=== PATIENT | male | born 1985 | race African-American/Black ===

== ENCOUNTER 2017-11-06 09:50 | Inpatient (IN) | payer OTHER ==
[2017-11-06 10:50] LABS: Hemoglobin 10.8 g/dL (14.0-18.0); Mean Corpuscular HGB CONC 34.5 g/dL (32.0-36.0); Mean Corpuscular Hemoglobin 29.6 pg (27.0-31.0); Mean Corpuscular Volume 85.9 fl (80.0-94.0); Mean Platelet Volume 6.8 fL (7.4-10.4); Platelet Count 179 thou/uL (130-400); RBC Distribution Width 11.3 % (11.5-14.5); Red Blood Cell (RBC) Count 3.63 mill/uL (4.70-6.10); White Blood Cell (WBC) Count 7.2 thou/uL (4.8-10.8)
[2017-11-06 11:11] LABS: ALT (SGPT) 12 U/L (8-55); AST (SGOT) 14 U/L (5-34); Alkaline Phosphatase 143 U/L (40-150); Anion Gap 17 mmol/L (10-20); BUN (Urea Nitrogen) 50 mg/dL (8.9-20.6); Bilirubin, Total 0.5 mg/dL (0.2-1.2); Calc. Creatinine Clearance 0 mL/min (70-130); Calcium 9.3 mg/dL (7.8-10.44); Carbon Dioxide 26 mmol/L (22-29); Chloride 98 mmol/L (98-107); Estimated GFR-MDRD 8; Globulin 3.1 g/dL (2.4-3.5); Potassium 4.2 mmol/L (3.5-5.1); Protein, Total 7.1 g/dL (6.0-8.3); Sodium 137 mmol/L (136-145)
[2017-11-06 11:19] LABS: Glucose 37 mg/dL (70-105)
[2017-11-06 11:22] LABS: Actual Bicarbonate (HCO3a) 31.4 mEq/L (22-26); Base Excess (BEa) 5.9 mEq/L (0 (+/-) 2.5); CO2 Tension 50.8 mmHg (35.0-45.0); Carboxyhemoglobin (COHb) 1.6 gm% (0.0-3.0); Hematocrit-ABG 30.5 % (42.0-52.0); Hemoglobin (Hb) 9.9 g/dL (14.0-18.0); O2 Tension (PaO2) 76.5 mmHg (80.0-100.0); Potassium - ABG Lab 3.8 mmol/L (3.70-5.30); pH, Arterial 7.41 (7.35-7.45)
[2017-11-06 11:23] LABS: Analyzer IN Cardio ER; Calcium, Ionized 1.1 mmol/L (1.12-1.30); Puncture Site LRA
[2017-11-06 11:49] LABS: Eosinophils 4 % (0-10); Lymphocytes 22 % (21-51); MDiff Complete? YES; Monocytes 8 % (0-10); Neutrophil 66 % (42-75)
[2017-11-06 17:20] LABS: ALT (SGPT) 15 U/L (8-55); AST (SGOT) 18 U/L (5-34); Albumin 4.2 g/dL (3.5-5.0); Alkaline Phosphatase 162 U/L (40-150); Anion Gap 26 mmol/L (10-20); BUN (Urea Nitrogen) 55 mg/dL (8.9-20.6); Bilirubin, Total 0.6 mg/dL (0.2-1.2); Calc. Creatinine Clearance 0 mL/min (70-130); Calcium 9.2 mg/dL (7.8-10.44); Carbon Dioxide 20 mmol/L (22-29); Chloride 89 mmol/L (98-107); Estimated GFR-MDRD 8; Globulin 3.3 g/dL (2.4-3.5); Glucose 755 mg/dL (70-105); Potassium 6.8 mmol/L (3.5-5.1); Protein, Total 7.5 g/dL (6.0-8.3); Sodium 128 mmol/L (136-145)
[2017-11-06] MEDS ORDERED: Ondansetron ODT 8 MG TAB ONE (17:32)
[2017-11-06] MEDS ORDERED: Metoclopramide HCl 10 MG/2 ML VIAL ONE (17:52)
[2017-11-06] MEDS ORDERED: Metoclopramide 10 MG/10 ML UDCUP ONE (17:52)
[2017-11-06] MEDS ORDERED: Insulin Regular 100 units/100 ml in NS IVPB SCH (18:00)
[2017-11-06] MEDS ORDERED: D5 1/2 NS w/20 mEq KCL 1,000 ML IV PRN (18:12)
[2017-11-06] MEDS ORDERED: Sodium Chloride 0.9% 1,000 ML IV PRN ×4 (18:12)
[2017-11-06] MEDS ORDERED: Senokot 8.6 MG TAB PO PRN (18:12)
[2017-11-06] MEDS ORDERED: Guaifenesin DM 100-10/5 ML UDCUP PO PRN (18:12)
[2017-11-06] MEDS ORDERED: Ondansetron PF 4 MG/2 ML Vial IVP PRN (18:12)
[2017-11-06] MEDS ORDERED: Acetaminophen 325 MG TAB PO PRN (18:12)
[2017-11-06] MEDS ORDERED: NS 0.9% w/ 20 MEQ KCL 1,000 ML IV PRN ×2 (18:12)
[2017-11-06] MEDS ORDERED: Dextrose 5 %-0.45 % NaCl 1,000 ML IV PRN (18:12)
[2017-11-06] MEDS ORDERED: CCU Electrolyte Replacement 1 EACH IVPB ONE (18:12)
[2017-11-06] MEDS ORDERED: Potassium Chloride 40 MEQ in Premix Bag 1 BAG IVPB PRN (18:14)
[2017-11-06] MEDS ORDERED: CCU ELECTROLYTE REPLACEMENT PROTOCOL FS PRN (18:14)
[2017-11-06] MEDS ORDERED: Potassium Phosphate 9 MMOL in Sodium Chloride 0.9% 100 ML IVPB PRN (18:14)
[2017-11-06] MEDS ORDERED: Potassium Chloride 20 MEQ TAB PO PRN (18:14)
[2017-11-06] MEDS ORDERED: Potassium Phosphate 12 MMOL in Sodium Chloride 0.9% 250 ML 250 ML IV PRN (18:14)
[2017-11-06] MEDS ORDERED: Magnesium 2 GM/NS 0.9% 100 ML 2 GM in Premix Bag 1 BAG IVPB PRN (18:14)
[2017-11-06] MEDS ORDERED: Potassium Chloride 40 MEQ in Sodium Chloride 0.9% 250 ML 250 ML IVPB PRN (18:14)
[2017-11-06] MEDS ORDERED: Potassium Phosphate 15 MMOL in Sodium Chloride 0.9% 250 ML 250 ML IV PRN (18:14)
[2017-11-06] MEDS ORDERED: Magnesium Oxide 400 MG TAB PO PRN ×2 (18:14)
[2017-11-06 18:18] LABS: Bilirubin Negative (Negative); Blood, Urine Negative (Negative); Clarity CLEAR (Clear); Glucose, Urine (Dipstick) >=1000 mg/dL (Negative); Leukocyte Negative (Negative); Nitrite Negative (Negative); Protein, Urine (Dipstick) 100 mg/dL (Neg-Trace); Specific Gravity, Urine 1.021 (1.002-1.036); Urobilinogen 0.2 mg/dL (0.2-1.0); pH, Urine 7.5 (5.0-9.0)
[2017-11-06 18:24] LABS: Bacteria/HPF Rare-Few HPF (None Seen); Hyaline Casts/LPF 0-3 HYALINE CAST LPF (0-3 Hyaline); RBC/HPF 0-3 HPF (0-3); Squamous Epithelial 0-3 HPF (0-3); WBC/HPF 0-3 HPF (0-3)
[2017-11-06] MEDS: Famotidine 20 MG TAB PO SCH (21:23)
[2017-11-06] MEDS: Heparin 5,000 UNITS/ML VIAL SC SCH (21:23)
[2017-11-06 22:08] VITALS: BMI 27.1
[2017-11-06 22:47] LABS: Anion Gap 26 mmol/L (10-20); BUN (Urea Nitrogen) 66 mg/dL (8.9-20.6); Calc. Creatinine Clearance 12 mL/min (70-130); Calcium 8.9 mg/dL (7.8-10.44); Carbon Dioxide 17 mmol/L (22-29); Chloride 91 mmol/L (98-107); Estimated GFR-MDRD 7; Glucose 751 mg/dL (70-105); Sodium 129 mmol/L (136-145)
[2017-11-06 22:49] LABS: Glucose 754 mg/dL (70-105)
[2017-11-06] MEDS ORDERED: Sodium Chloride 0.9% 500 ML IVPB SCH (23:15)
[2017-11-06] MEDS ORDERED: Ondansetron ODT 4 MG TAB PO PRN (23:32)
[2017-11-07 01:18] LABS: Anion Gap 23 mmol/L (10-20); BUN (Urea Nitrogen) 67 mg/dL (8.9-20.6); Calc. Creatinine Clearance 12 mL/min (70-130); Calcium 9.1 mg/dL (7.8-10.44); Carbon Dioxide 20 mmol/L (22-29); Chloride 92 mmol/L (98-107); Estimated GFR-MDRD 7; Glucose 439 mg/dL (70-105); Potassium 4.3 mmol/L (3.5-5.1); Sodium 131 mmol/L (136-145)
[2017-11-07 05:01] LABS: Albumin 3.7 g/dL (3.5-5.0); Anion Gap 17 mmol/L (10-20); BUN (Urea Nitrogen) 68 mg/dL (8.9-20.6); BUN/Creatinine Ratio 6.71; Calc. Creatinine Clearance 12 mL/min (70-130); Calcium 9.3 mg/dL (7.8-10.44); Carbon Dioxide 26 mmol/L (22-29); Chloride 94 mmol/L (98-107); Estimated GFR-MDRD 7; Glucose 105 mg/dL (70-105); Potassium 4.5 mmol/L (3.5-5.1); Sodium 132 mmol/L (136-145)
[2017-11-07 05:11] LABS: #Eosinphils 0.2 thou/uL (0.0-0.7); #Lymphocytes 1.9 thou/uL (1.20-3.40); #Monocytes 1.1 thou/uL (0.11-0.59); %Basophils 0.4 % (0.0-1.0); %Eosinophils 2.2 % (0.0-10.0); %Lymphocytes 20.1 % (21.0-51.0); %Monocytes 11.5 % (0.0-10.0); %Neutrophils 65.8 % (42.0-75.0); Hemoglobin 9.4 g/dL (14.0-18.0); Mean Corpuscular HGB CONC 34.6 g/dL (32.0-36.0); Mean Corpuscular Hemoglobin 29.9 pg (27.0-31.0); Mean Corpuscular Volume 86.4 fl (80.0-94.0); Mean Platelet Volume 7.3 fL (7.4-10.4); Platelet Count 178 thou/uL (130-400); RBC Distribution Width 11.5 % (11.5-14.5); Red Blood Cell (RBC) Count 3.15 mill/uL (4.70-6.10); White Blood Cell (WBC) Count 9.2 thou/uL (4.8-10.8)
--- NOTE | 2017-11-07 08:50 | CON ---
DATE OF CONSULTATION: 11/07/2017 HISTORY OF PRESENT ILLNESS: Mr. Romeo is a 32-year-old black male with ESRD and admitted for severe hyperglycemia. We are now being consulted for his maintenance hemodialysis. Evaluation of the lakshmi ent showed he had an elevated potassium yesterday. He is receiving extra dialysis today due to that problem. In addition, I am at the bedside supervising his dialysis. REVIEW OF SYSTEMS: No chest pain, no shortness of breath, no nausea, no vomiting, no diarrhea, no co nstipation, no syncopal episode, no productive cough, no fever or chills. No gross hematuria, no dys uria, no urinary frequency, no syncopal episode, no sore throat, no abdominal pain. Appetite and urmila rgy level are fair. No nausea, no vomiting, no diplopia. MEDICATIONS: Currently on amoxicillin 500 mg p.o. daily, Norvasc 10 mg daily, Pepcid 20 mg q.a.m., h eparin 5000 units subcu b.i.d. The patient is on insulin, magnesium oxide 400 mg every day, minoxidi l 2.5 mg daily. PAST MEDICAL HISTORY: 1. Type 1 diabetes mellitus. 2. ESRD from diabetic nephropathy and hypertension. PAST SURGICAL HISTORY: 1. Status post AV fistula placement. 2. 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 3. Left great toe amputation. SOCIAL HISTORY: The patient is currently incarcerated in [place]. He is single. He has 2 childr en. 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 Education, high school. Used to smoke, but he could not curtis ntify. Currently, no alcohol intake. Denies any blood transfusion. He currently denies current use of IV drugs. ALLERGIES: No known drug allergies. TRAUMA: None. IMMUNIZATIONS: Up-to-date. HOSPITALIZATIONS: Please see past medical history. FAMILY HISTORY: Noncontributory. PHYSICAL EXAMINATION: VITAL SIGNS: Blood pressure 150/80, heart rate 92, respiratory rate 16, temperature 98.5, pulse ox 9 9%. GENERAL EXAM: Noted to be awake, alert, supine, comfortable, not in distress. SKIN: Adequate turgor. HEENT: He has slightly pale conjunctivae, anicteric sclerae. NECK: No neck mass, no carotid bruits, no JVD. CHEST: No deformities. LUNGS: Clear breath sounds, no wheezing, no crackles. HEART: Normal sinus rhythm. No murmur, no gallops, no rubs. ABDOMEN: Globular, soft, nontender, no masses. EXTREMITIES: No edema, no deformities. NEUROLOGICAL EXAM: Awake, oriented to 3 spheres. Moving all extremities. No tremors, no asterixis, no ataxia. LABORATORY DATA: Laboratories of 11/07/2017, white count 9.2, hemoglobin 9.4. Sodium 132, potassium 4.5, chloride 94, carbon dioxide 26, BUN 68, creatinine 10, glucose 105, calcium 9.3, phosphorus 3.0 , albumin 3.7. 11/07/2017, BUN 67 and creatinine 10.01. ASSESSMENT AND PLAN: 1. End-stage renal disease - stable. We will continue current hemodialysis regimen. Fluid removal of about 3.5 liters as tolerated by the patient, avoiding heparin use. 2. Hyperkalemia - resolved. 3. Type 1 diabetes mellitus, status post IV insulin drip, on insulin regimen - sliding scale. The p atient is doing better. Agree with current management.
[2017-11-07] MEDS ORDERED: Dextrose 5% in Water 1,000 ML IV PRN (09:40)
[2017-11-07] MEDS ORDERED: Dextrose 50% Abboject 50 ML SYRINGE SLOW IVP PRN (09:40)
--- NOTE | 2017-11-07 13:04 | PDOC.PN ---
- Subjective Encounter Start Date: 11/07/17 Encounter Start Time: 09:30 Subjective: is getting HD, no complaints -: feels better - Objective Resuscitation Status: Resuscitation Status FULL:Full Resuscitation MAR Reviewed: Yes Vital Signs & Weight: Vital Signs (12 hours) Temp Pulse Resp BP Pulse Ox 11/07/17 08:00 98.5 F 92 16 99 11/07/17 07:32 98.5 F 92 16 150/80 H 99 11/07/17 04:00 83 15 114/56 L 98 Weight Weight 176 lb 12.8 oz I&O: 11/06/17 11/07/17 11/08/17 06:59 06:59 06:59 Intake Total 441 140 Output Total 250 Balance 191 140 Result Diagrams: 11/07/17 03:33 11/07/17 03:33 Additional Labs: Accuchecks 11/07/17 11/07/17 11/07/17 11:00 10:02 09:04 POC Glucose 249 H 235 H 202 H 11/07/17 11/07/17 11/07/17 08:05 07:09 06:02 POC Glucose 226 H 170 H 98 11/07/17 11/07/17 11/07/17 05:02 03:56 03:06 POC Glucose 79 87 121 H 11/07/17 11/06/17 02:10 21:24 POC Glucose 192 H Greater than 550 H* Phys Exam - Physical Examination HEENT: PERRLA, moist MMs Neck: no JVD, supple Respiratory: no wheezing, no rales Cardiovascular: RRR, no significant murmur Gastrointestinal: soft, non-tender, positive bowel sounds Musculoskeletal: no edema, pulses present Neurological: non-focal, moves all 4 limbs Psychiatric: normal affect, A&O x 3 Dx/Plan (1) DKA (diabetic ketoacidoses) Code(s): E13.10 - OTH DIABETES MELLITUS WITH KETOACIDOSIS WITHOUT COMA Status : Resolved Qualifiers: Diabetes mellitus type: type 1 Diabetes mellitus complication detail: without coma Qualified Code(s): E10.10 - Type 1 diabetes mellitus with ketoacidosis without coma (2) DM type 1 (diabetes mellitus, type 1) Status: Chronic Qualifiers: Diabetes mellitus complication status: with kidney complications Diabetes mellitus complication detail: with chronic kidney disease Chronic kidney disease stage: on chronic dialysis Qualified Code(s): E10.22 - Type 1 diabetes mellitus with diabetic chronic kidney disease; N18.6 - End stage renal disease; N18.6 - End stage renal disease; N18.6 - End stage renal disease; N18.6 - End stage renal disease; Z99.2 - Dependence on renal dialysis; Z99.2 - Dependence on renal dialysis; Z99.2 - Dependence on renal dialysis; Z99.2 - Dependence on renal dialysis (3) ESRD (end stage renal disease) on dialysis Code(s): N18.6 - END STAGE RENAL DISEASE; Z99.2 - DEPENDENCE ON RENAL DIALYSIS Status: Chronic (4) HTN (hypertension) Code(s): I10 - ESSENTIAL (PRIMARY) HYPERTENSION Status: Chronic Qualifiers: Hypertension type: essential hypertension Qualified Code(s): I10 - Essential (primary) hypertension - Plan is of dka protocol -: levemir sc bid with coverage -: continue meds for htn -: watch for hypoglycemia, blood cs -ve, amox for right ear inf -: dc plan in am to [facility], to amb in room as tolerated * . Review of Systems - Medications/Allergies Allergies/Adverse Reactions: Allergies Allergy/AdvReac Type Severity Reaction Status Date / Time peanut Allergy Verified 11/07/17 00:08 Medications: Current Medications Acetaminophen (Tylenol) 650 mg PO Q4H PRN PRN Reason: Headache/Fever or Pain Amlodipine Besylate (Norvasc) 10 mg PO DAILY [facility] Amoxicillin (Amoxil) 500 mg PO DAILY [facility] Dextrose/Water (Dextrose 50%) 25 gm SLOW IVP PRN PRN PRN Reason: Hypoglycemia Famotidine (Pepcid) 20 mg PO QPM [facility] Last Admin: 11/06/17 21:23 Dose: Not Given Glucagon (Glucagon) 1 mg IM PRN PRN PRN Reason: Hypoglycemia Guaifenesin/Dextromethorphan (Robitussin Dm) 15 ml PO Q4H PRN PRN Reason: Cough Heparin Sodium (Porcine) (Heparin) 5,000 units SC BID [facility] Last Admin: 11/06/17 21:23 Dose: 5,000 units Dextrose/Water (D5w) 1,000 mls @ 0 mls/hr IV .Q0M PRN; As Directed PRN Reason: Hypoglycemia Insulin Detemir 10 units/ (Miscellaneous Medication) 0.1 mls @ 0 mls/hr SC BID [facility] Insulin Human Lispro (Humalog) 0 units SC .MODERATE SLIDING SC PRN PRN Reason: Moderate Correctional Scale Minoxidil (Minoxidil) 2.5 mg PO DAILY [facility] Senna (Senokot) 2 tab PO HSPRN PRN PRN Reason: Constipation
[2017-11-07] MEDS: HumaLOG 300 UNITS/3 ML VIAL SC PRN ×2 (13:27→17:22)
[2017-11-07] MEDS: Heparin 5,000 UNITS/ML VIAL SC SCH ×2 (13:30→21:18)
[2017-11-07] MEDS: Minoxidil 2.5 MG TAB PO SCH (13:30)
[2017-11-07] MEDS: Amlodipine 10 MG TAB PO SCH (13:31)
[2017-11-07] MEDS: AMOXicillin 250 MG CAP PO SCH (13:37)
[2017-11-07] MEDS: Insulin Detemir 100 UNITS/ML 10 UNITS in Pre-Filled Syringe 1 EACH SC SCH (21:15)
[2017-11-07] MEDS: Famotidine 20 MG TAB PO SCH (21:16)
[2017-11-08] MEDS: HumaLOG 300 UNITS/3 ML VIAL SC PRN ×2 (05:21→17:09)
[2017-11-08 05:53] LABS: Anion Gap 17 mmol/L (10-20); BUN (Urea Nitrogen) 45 mg/dL (8.9-20.6); Calc. Creatinine Clearance 16 mL/min (70-130); Calcium 8.7 mg/dL (7.8-10.44); Carbon Dioxide 24 mmol/L (22-29); Chloride 97 mmol/L (98-107); Estimated GFR-MDRD 10; Glucose 303 mg/dL (70-105); Potassium 4.9 mmol/L (3.5-5.1); Sodium 133 mmol/L (136-145)
--- NOTE | 2017-11-08 06:34 | HP ---
REASON FOR ADMISSION: Hyperosmolar diabetes type 1 and early DKA. HISTORY OF PRESENTING ILLNESS: The patient gives history of his fingerstick glucose being high around 400s to high on the monitor for almost a month. They have been titrating his insulin but he thinks that he is not getting enough insulin at the [facility]. Each time his fingerstick glucose is more than 160 , they give him 8 units of Levemir and a sliding scale and if his fingerstick glucose is less than 160, they give him 4 units of Levemir with sliding scale. This morning at the [facility] unit, he felt like his sugar was high. They took him to [facility] where his serum sugar was more than 800. He was placed on insulin drip and transferred here for early DKA. The patient was on 10 units IV insulin on arrival here. His sugar dropped down to 40s and he was closely monitored after turning off insulin drip. His second set of metabolic panel done at 4:40pm showed his serum sugar jumping up to 755 with potassium of 6.8 and serum bicarb of 20. Decision was made to admit the patient to [facility] on insulin drip. The patient has been a type 1 diabetic from 14 years of age. He has had his regular dialysis on Tuesday. He has been on dialysis from last 2 years now. No complaints of cough or expectoration. He is on amoxicillin for right ear infection with no obvious drainage at present. No complaints of right ear pain at present. No complaints of urinary burning or frequency. No complaints of cough or expectoration or chest pain. The patient vomited x1, which was bilious here in the ER around 5:30 p.m. PAST MEDICAL AND SURGICAL HISTORY: History of type 1 diabetes from 14 years of age; end-stage renal disease, on hemodialysis last 2 years; hypertension; thymus gland was removed because it was infected at the age of 13 years; left great toe amputation for infection and gets dialyzed on Tuesday, , Tuesday regimen. CURRENT MEDICATIONS: Patient is on Norvasc 10 mg daily, Levemir 8 units twice daily, NovoLog sliding scale, minoxidil 2.5 mg twice daily. ALLERGIES: No known drug allergies. PERSONAL HISTORY: Quit smoking prior to going to [facility] that is 5 years back, was also using marijuana prior to that. Currently does not abuse alcohol or drugs. No history of smoking from last 5 years in [facility]. He is up for first parole hearing in 3 and half months now. The patient has 2 children. He is not at present. FAMILY HISTORY: Mother is living and has history of diabetes. Father at the age of 56 years. He has had history of pneumonia. REVIEW OF SYSTEMS: The following complete review of systems was negative, unless otherwise mentioned in the HPI or below: Constitutional: Weight loss or gain, ability to conduct usual activities. Skin: Rash, itching. Eyes: Double vision, pain. ENT/Mouth: Nose bleeding, neck stiffness, pain, tenderness. Cardiovascular: Palpitations, dyspnea on exertion, orthopnea. Respiratory: Shortness of breath, wheezing, cough, hemoptysis, fever or night sweats. Gastrointestinal: Poor appetite, abdominal pain, heartburn, nausea, vomiting, constipation, or diarrhea. Genitourinary: Urgency, frequency, dysuria, nocturia. Musculoskeletal: Pain, swelling. Neurologic/Psychiatric: Anxiety, depression. Allergy/Immunologic: Skin rash, bleeding tendency. PHYSICAL EXAMINATION: GENERAL: The patient is a 32-year-old male, who is currently not in any acute distress. VITAL SIGNS: Blood pressure 138/84, pulse 80 per minute, respiratory rate 16 per minute, temperature 98 degrees Fahrenheit, saturating 96% on room air. NECK: Supple. No elevated. EYES: Extraocular muscles intact. Pupils reacting to light. Oral cavity, mucous membranes are dry. No exudates or congestion. CARDIOVASCULAR SYSTEM: S1, S2 heard. Regular rhythm. RESPIRATORY SYSTEM: Air entry 1+ bilateral. No rales or rhonchi. ABDOMEN: Soft. Bowel sounds heard. No tenderness, rigidity, or guarding. EXTREMITIES: No peripheral edema or calf tenderness. VASCULAR SYSTEM: Peripheral pulses 1+ bilateral. No ischemic ulcerations or gangrene. CENTRAL NERVOUS SYSTEM: No gross focal deficits seen. The patient is alert and oriented well. PSYCHIATRIC SYSTEM: The patient's mood is euthymic. No hallucinations or delusions. LABORATORY DATA: White count of 7, H and H 10 and 31, platelet count 179,000 with 66% neutrophils. Blood gas done showed a pH of 7.41, this was at 10:48 a.m., pCO2 50, PO2 76, bicarb on the blood gas was 31. Metabolic panel done at 4:47 shows a sodium of 128, potassium 6.8, chloride 89, bicarb of 20, BUN 55, creatinine 8.9, serum glucose of 755, alk phos 162, AST and ALT within normal limits. Albumin is 4.2. Beta hydroxybutyrate on arrival at 10:40 was 0.07. EKG done shows normal sinus rhythm at 87 beats per minute. CLINICAL IMPRESSION AND PLAN: The patient will be admitted to [facility] for DKA with hyperosmolar state. He is type [address] him on insulin drip and follow DKA protocol. For his hyperkalemia, 30 g of Kayexalate along with bolus insulin will be given IV. We will closely monitor his metabolic panel with DKA protocol. We will also continue Norvasc. His once a day amoxicillin for his right ear infection, Pepcid 20 mg twice daily and minoxidil once a day will be continued for now. Dr. Daniel has been consulted for end-stage renal disease with patient being on dialysis. If his hyperkalemia does not get corrected, the patient might need hemodialysis. We will continue to closely monitor him for any hemodynamic compromise. Urine and blood cultures will be obtained as a precaution for now. AMAURYD
--- NOTE | 2017-11-08 08:29 | PRG ---
DATE OF SERVICE: 11/08/2017 SUBJECTIVE: Mr. Romeo is a 32-year-old black male with ESRD and admitted for hyperglycemia. Initijacinda santanay he was hyperkalemic when the lab was done at [facility]. We are being consulted for his maint enance hemodialysis. He is undergoing his regular dialysis scheduled today. I am at the bedside sup ervising his dialysis. The patient denies any chest pain, shortness of breath, nausea, vomiting. Hi s appetite is much improved. PHYSICAL EXAMINATION: VITAL SIGNS: Blood pressure 157/85, heart rate 75, respiratory rate 18, temperature 97.9, pulse ox 9 7%. GENERAL: Awake, alert, comfortable, not in distress. SKIN: Adequate turgor. HEENT: Pinkish conjunctivae, anicteric sclerae. NECK: No neck mass, no carotid bruits, no JVD. CHEST: No deformities. LUNGS: Clear breath sounds, no wheezing, no crackles. HEART: Normal sinus rhythm. No murmur, no gallops, no rubs. ABDOMEN: Globular, soft, nontender. No masses. EXTREMITIES: No edema, no deformities. MEDICATIONS: 11/08/2017 - Reviewed. LABORATORY: 11/07/2017 - White count 9.2, hemoglobin 9.4, hematocrit 27.2. 11/08/2017 - Sodium 133, potassium 4.9, chloride 97, carbon dioxide 24, BUN 45, creatinine 7.52, gluc ose 303, calcium 8.7. ASSESSMENT AND PLAN: 1. End-stage renal disease, stable. We will continue current maintenance hemodialysis of Tuesday, , and Tuesday. Fluid removal only as tolerated with the patient. Minimal heparin use. 2. Hyperglycemia - from type 1 diabetes mellitus, much improved. 3. Hyperkalemia, resolved. I agree with current management. Agree with planned discharge.
[2017-11-08] MEDS: AMOXicillin 250 MG CAP PO SCH (12:34)
[2017-11-08] MEDS: Minoxidil 2.5 MG TAB PO SCH (12:34)
[2017-11-08] MEDS: Insulin Detemir 100 UNITS/ML 10 UNITS in Pre-Filled Syringe 1 EACH SC SCH ×2 (12:35→21:17)
[2017-11-08] MEDS: Heparin 5,000 UNITS/ML VIAL SC SCH ×2 (12:37→21:18)
[2017-11-08] MEDS: Amlodipine 10 MG TAB PO SCH (12:37)
--- NOTE | 2017-11-08 14:55 | PDOC.PN ---
- Subjective Encounter Start Date: 11/08/17 Encounter Start Time: 14:54 Mr. Romeo was seen today in follow-up. He does not have any complaints. He denies sore throat, no cough or congestion, no chest pain, no nausea or vomiting. - Objective Resuscitation Status: Resuscitation Status FULL:Full Resuscitation MAR Reviewed: Yes Vital Signs & Weight: Vital Signs (12 hours) Temp Pulse Resp BP BP Pulse Ox 11/08/17 12:37 75 144/82 H 11/08/17 07:15 97.9 F 75 18 157/85 H 97 11/08/17 03:44 98.6 F 80 18 141/84 H 96 Weight Weight 176 lb 12.8 oz I&O: 11/07/17 11/08/17 11/09/17 06:59 06:59 06:59 Intake Total 441 620 Output Total 250 Balance 191 620 Result Diagrams: 11/07/17 03:33 11/08/17 04:42 Additional Labs: Accuchecks 11/08/17 11/08/17 11/07/17 12:43 05:22 21:15 POC Glucose 79 268 H 228 H 11/07/17 11/06/17 17:07 19:58 POC Glucose 320 H Greater than 550 H* Phys Exam - Physical Examination HEENT: PERRLA, oral pharynx no lesions Respiratory: no wheezing, no rales, no rhonchi, clear to auscultation bilateral Cardiovascular: RRR, no significant murmur, no rub Gastrointestinal: soft, non-tender, no distention, positive bowel sounds Musculoskeletal: no edema Dx/Plan (1) DKA (diabetic ketoacidoses) Code(s): E13.10 - OTH DIABETES MELLITUS WITH KETOACIDOSIS WITHOUT COMA Status : Resolved Qualifiers: Diabetes mellitus type: type 1 Diabetes mellitus complication detail: without coma Qualified Code(s): E10.10 - Type 1 diabetes mellitus with ketoacidosis without coma (2) Otitis media Code(s): H66.90 - OTITIS MEDIA, UNSPECIFIED, UNSPECIFIED EAR Status: Acute (3) DM type 1 (diabetes mellitus, type 1) Status: Chronic Qualifiers: Diabetes mellitus complication status: with kidney complications Diabetes mellitus complication detail: with chronic kidney disease Chronic kidney disease stage: on chronic dialysis Qualified Code(s): E10.22 - Type 1 diabetes mellitus with diabetic chronic kidney disease; N18.6 - End stage renal disease; N18.6 - End stage renal disease; N18.6 - End stage renal disease; N18.6 - End stage renal disease; Z99.2 - Dependence on renal dialysis; Z99.2 - Dependence on renal dialysis; Z99.2 - Dependence on renal dialysis; Z99.2 - Dependence on renal dialysis (4) ESRD (end stage renal disease) on dialysis Code(s): N18.6 - END STAGE RENAL DISEASE; Z99.2 - DEPENDENCE ON RENAL DIALYSIS Status: Chronic (5) HTN (hypertension) Code(s): I10 - ESSENTIAL (PRIMARY) HYPERTENSION Status: Chronic Qualifiers: Hypertension type: essential hypertension Qualified Code(s): I10 - Essential (primary) hypertension - Plan * DKA- resolved * DM type 1- his insulin dose will be increased slightly * Stable for discharge.
[2017-11-08 20:11] VITALS: BP 117/61; TEMP 98.5
[2017-11-08] MEDS ORDERED: Sodium Chloride 0.9% 0 ML ONE (20:56)
[2017-11-08] MEDS: Famotidine 20 MG TAB PO SCH (21:14)
--- NOTE | 2017-11-08 23:41 | DIS ---
DATE OF ADMISSION: 11/06/2017 DATE OF DISCHARGE: 11/08/2017 DISCHARGE DISPOSITION: Back to the intermediate. DISCHARGE DIAGNOSES: 1. Diabetic ketoacidosis. 2. Otitis media. 3. Diabetes mellitus type 1. 4. End-stage renal disease on hemodialysis. 5. Hypertension. DISCHARGE MEDICATIONS: Please note his dose of insulin was increased to Levemir 10 units twice a day . He is to continue amoxicillin 500 mg daily, amlodipine 10 mg daily, Tylenol 650 mg twice a day, No voLog sliding scale, minoxidil 5 mg twice daily, Zemplar 2 mcg every 3 days, and simethicone 80 mg t. i.d. CODE STATUS: FULL CODE. ALLERGIES: PEANUTS. HOSPITAL COURSE: Mr. Romeo is a pleasant 32-year-old gentleman who presented to the emergency room after he was found to have elevated blood glucoses in the intermediate. He was found to be in diabetic ketoa cidosis. He was admitted and started on an insulin drip and his blood sugars improved. It is unclea r what precipitated the DKA, but I suspected it was due to the otitis media. He was on amoxicillin f or the treatment of this. There was no evidence of any other active infection. Blood cultures were negative and his CBC did not show any leukocytosis. The patient is now clinically stable and will be discharged back to the intermediate.
== END 2017-11-09 00:05 | DRG 637 ==
LOC: ERS 09:50 → IMCU/EMU 17:50 → T4-B 11-07 11:57
PROVIDERS: ADMIT Internal Medicine; ATTEND Internal Medicine
PROC: 5A1D70Z Performance of Urinary Filtration, Intermittent, Less than 6 Hours Per Day (ICD-10-PCS; principal; 2017-11-08)
DX: E10.10 Type 1 diabetes mellitus with ketoacidosis without coma (principal); N18.6 End stage renal disease; I12.0 Hypertensive chronic kidney disease with stage 5 chronic kidney disease or end stage renal disease; E87.5 Hyperkalemia; E10.21 Type 1 diabetes mellitus with diabetic nephropathy; E10.22 Type 1 diabetes mellitus with diabetic chronic kidney disease; Z79.4 Long term (current) use of insulin; Z87.891 Personal history of nicotine dependence; Z99.2 Dependence on renal dialysis; H66.90 Otitis media, unspecified, unspecified ear
CPT/HCPCS: 36415; 36416; 80048; 80053; 80069; 81003; 81015; 82010; 82805; 83930; 85025; 87040; 90935; 96374; 96375; G0257; J1644; J1815; J2765; J7050